=== PATIENT | female | born 1965 | race Caucasian/White ===

== ENCOUNTER 2017-03-30 11:02 | Emergency (ER) | payer OTHER ==
[~2017-03-30] VITALS: Ht 142.2 cm; Wt 73.3 kg
[~2017-03-30 11:02] MED LIST: AMLO-73 PO; ASPI81CT89 PO; SIMV20TA1 PO; [UNRECOGNIZED DRUG - CODE] PO
[2017-03-30 11:23] VITALS: BP 129/80
--- NOTE | 2017-03-30 13:13 | NUR ---
Patient ambulated to bed 5 at this time.
--- NOTE | 2017-03-30 13:15 | NUR ---
51F BIB FAMILY C/O GENERALIZED WEAKNESS X 3 DAYS; PT AA&OX4, PERRLA, BL LUNG SOUNDS CLEAR, RR EVEN/UNLABORED AT THIS TIME; SKIN IS WARM/DRY/INTACT AT THIS TIME; PT C/O OF NAUSEA, BUT DENIES VOMITING/DIARRHEA AT THIS TIME; ABDOMEN SOFT, NON-TENDER, ACTIVE BOWEL SOUNDS X4 QUADRANTS; PT STATES NO PAIN AT THIS TIME; PT STATES HAD 2 EPISODES OF VAGINAL SPOTTING X 2 DAYS AGO, BUT STATES NO VAGINAL SPOTTING, DYSURIA, OR URINARY SYMPTOMS AT THIS TIME; PT RESTING IN BED W/ HOB ELEVATED AND IN LOWEST POSITION; POSITIONED FOR COMFORT; ER MD MADE AWARE OF STATUS. WILL CONTINUE TO MONITOR.
--- NOTE | 2017-03-30 13:43 | NUR ---
PT TAKEN TO XRAY VIA W/C ACCOMPANIED BY Box AT THIS TIME.
[2017-03-30 13:53] LABS: APPEARANCE,URINE CLEAR (CLEAR); BILIRUBIN,URINE NEGATIVE (NEGATIVE); BLOOD, URINE TRACE-I (NEGATIVE); COLOR,URINE YELLOW (YELLOW); LEUKOCYTE ESTERASE ,URINE NEGATIVE (NEGATIVE); NITRITE, URINE NEGATIVE (NEGATIVE); PROTEIN,URINE NEGATIVE (NEGATIVE); UGLUCOSE NEGATIVE (NEGATIVE); UROBILINOGEN,URINE 0.2 EU/dL (0.2 - 1)
[2017-03-30 14:09] LABS: ALBUMIN 3.6 g/dL (3.4-5.0); ANION GAP 12.5 (8-16); CALCIUM 8.6 mg/dL (8.5-10.1); CARBON DIOXIDE 26.8 mmol/L (21-32); CREATININE 0.5 mg/dL (0.6-1.3); POTASSIUM 4.3 mmol/L (3.5-5.1); TOTAL BILIRUBIN 0.2 mg/dL (0.0-1.0); TOTAL PROTEIN, SERUM 7.9 g/dL (6.4-8.2)
[2017-03-30 14:10] LABS: BASOPHILS # (AUTO) 0.2 K/uL (0.00-0.22); EOSINOPHILS # (AUTO) 0.1 K/uL (0-0.4); LYMPHOCYTES % (AUTO) 35.8 % (20.5-51.1); MONOCYTES # (AUTO) 0.5 K/uL (0.8-1.0); NEUTROPHILS # (AUTO) 2.3 K/uL (1.8-7.7)
[2017-03-30 14:11] LABS: HEMATOCRIT 44.3 % (36-48); HEMOGLOBIN 13.9 g/dL (12.0-16.0); RED BLOOD CELL COUNT(AUTO) 5.48 MIL/uL (4.20-5.40); WHITE BLOOD COUNT (AUTO) 4.9 K/uL (4.8-10.8)
[2017-03-30 14:12] LABS: BASOPHILS % (AUTO) 3.1 % (0.0-2.0); EOSINOPHILS % (AUTO) 2.1 % (0.0-4.0); LYMPHOCYTES # (AUTO) 1.8 K/uL (2.5-16.5); MEAN CORPUSCULAR HEMOGLOBIN 25 pg (27-31); MEAN CORPUSCULAR HGB CONC 31 g/dL (33-37); MEAN CORPUSCULAR VOLUME 81 fL (80-94); MONOCYTES % (AUTO) 10.9 % (1.7-9.3); NEUTROPHILS % (AUTO) 48.1 % (42.2-75.2); PLATELET COUNT (AUTO) 267 K/uL (140-450)
[2017-03-30 14:14] LABS: BACTERIA,URINE FEW /HPF (None Seen); WBC,URINE 0-3 /HPF (0-5)
[2017-03-30 14:27] LABS: PROTHROMBIN TIME 10.5 secs (10.8-13.4)
--- NOTE | 2017-03-30 14:39 | NUR ---
PT APPEARS TO BE RESTING COMFORTABLY IN BED; VSS; RR EVEN/UNLABORED; WILL CONTINUE TO MONITOR.
--- NOTE | 2017-03-30 15:53 | NUR ---
ER MD DR. FUENTES EVALUATING PT AT BEDSIDE.
[2017-03-30] MEDS ORDERED: LEVOFLOXACIN 750 MG TAB PO ONE ×2 (16:05→16:30)
[2017-03-30] MEDS ORDERED: LEVOFLOXACIN 500 MG TAB PO ONE (16:35)
--- NOTE | 2017-03-30 16:38 | NUR ---
PT APPEARS TO BE RESTING COMFORTABLY IN BED; VSS; RR EVEN/UNLABORED; STATES NO PAIN AT THIS TIME; WILL CONTINUE TO MONITOR.
[2017-03-30 17:00] VITALS: BP 124/76
--- NOTE | 2017-03-30 17:00 | NUR ---
Patient discharged with v/s stable. Written and verbal after care instructions given and explained. Patient alert, oriented and verbalized understanding of instructions. Ambulatory with steady gait. All questions addressed prior to discharge. ID band removed. Patient advised to follow up with PMD. Rx of PYRIDIUM 200MG TAB & CIPRO 500MG TAB given. Patient educated on indication of medication including possible reaction and side effects. Opportunity to ask questions provided and answered.
== END 2017-03-30 17:00 | disposition home or self-care (01) ==
LOC: MED 11:02
DX: R53.83 Other fatigue (principal); R42 Dizziness and giddiness; R30.0 Dysuria; I10 Essential (primary) hypertension; Z79.899 Other long term (current) drug therapy; Z98.890 Other specified postprocedural states
CPT/HCPCS: 36415; 71020; 80053; 81001; 81025; 82948; 84443; 85025; 85610; 99285

== ENCOUNTER 2017-12-07 19:05 | Emergency (ER) | payer OTHER ==
[~2017-12-07] VITALS: Ht 144.8 cm; Wt 72.6 kg
[~2017-12-07 19:05] MED LIST changes: +PHEN-500 PO; -[UNRECOGNIZED DRUG - CODE] PO
[2017-12-07 19:11] VITALS: BP 137/78
--- NOTE | 2017-12-07 19:52 | NUR ---
PATIENT AMBULATED TO ER CHAIR B
--- NOTE | 2017-12-07 20:00 | NUR ---
52Y F BIB SELF C/O WANG X 1 DAY, PT STATES SHE WAS TAKING LOTREL 5/40MG AND ZESTORETIC 20/25MG BUT PT STATES BP IS STILL NOT BEING CONTROLLED. PT DENIES ANY N/V/D, SOB, CP AT THE MOMENT. PT AAOX4. PT AMBULATED TO OF CHAIR B WITH STEADY GAIT
--- NOTE | 2017-12-07 20:52 | NUR ---
Dr. Chinchilla evaluating patient.
[2017-12-07 21:20] VITALS: BP 133/71
--- NOTE | 2017-12-07 21:21 | NUR ---
Patient discharged with v/s stable. Written and verbal after care instructions given and explained. Patient alert, oriented and verbalized understanding of instructions. Ambulatory with steady gait. All questions addressed prior to discharge. ID band removed. Patient advised to follow up with PMD. Rx of AMLODIPINE 5MG-40MG given. Patient educated on indication of medication including possible reaction and side effects. Opportunity to ask questions provided and answered.
== END 2017-12-07 21:21 | disposition home or self-care (01) ==
LOC: MED 19:05
DX: Z76.0 Encounter for issue of repeat prescription (principal); I10 Essential (primary) hypertension; Z79.899 Other long term (current) drug therapy; Z79.82 Long term (current) use of aspirin
CPT/HCPCS: 99283

== ENCOUNTER 2018-12-02 19:28 | Emergency (ER) | payer OTHER ==
[~2018-12-02] VITALS: Ht 144.8 cm; Wt 76.7 kg
[~2018-12-02 19:28] MED LIST changes: -AMLO-73 PO; +AMLO1CAP13 PO; +ASPI-1821 PO; -ASPI81CT89 PO
[2018-12-02 19:57] VITALS: BP 153/66
--- NOTE | 2018-12-02 20:03 | NUR ---
PT TO LOBBY, IN NO ACUTE DISTRESS, VSS.
--- NOTE | 2018-12-02 20:19 | NUR ---
53/F PRESENTS TO ED, C/O NONPRODUCTIVE COUGH, BL EARAHCE, THROAT PAIN AND BODY ACHES, X1 WEEK WORSENING. PT DENIES FEVER, N/V. AOX4, GCS 15, RR EVEN AND UNLABORED. HX HTN, PRE-DM
--- NOTE | 2018-12-02 20:19 | NUR ---
PT TAKEN TO BED 7
[2018-12-02] MEDS ORDERED: KETOROLAC 30 MG/ML VIAL IM ONE (21:55)
[2018-12-02 22:40] VITALS: BP 148/64
--- NOTE | 2018-12-02 22:40 | NUR ---
Patient discharged with v/s stable. Written and verbal after care instructions given and explained. Patient alert, oriented and verbalized understanding of instructions. Ambulatory with steady gait. All questions addressed prior to discharge. ID band removed. Patient advised to follow up with PMD. Rx of ZITHROMAX, NAPROSYN, AND GUAIATUSSIN given. Patient educated on indication of medication including possible reaction and side effects. Opportunity to ask questions provided and answered.
== END 2018-12-02 22:40 | disposition home or self-care (01) ==
LOC: MED 19:28
DX: J18.9 Pneumonia, unspecified organism (principal); I10 Essential (primary) hypertension; Z90.49 Acquired absence of other specified parts of digestive tract; Z79.82 Long term (current) use of aspirin; Z79.899 Other long term (current) drug therapy
CPT/HCPCS: 71045; 87804; 96372; 99284; J1885; Q0092

== ENCOUNTER 2019-01-23 12:10 | Emergency (ER) | payer OTHER ==
[~2019-01-23] VITALS: Ht 139.7 cm; Wt 74.5 kg
[2019-01-23 12:47] VITALS: BP 136/75
[2019-01-23 13:43] LABS: BASOPHILS % (AUTO) 0.6 % (0.0-2.0); EOSINOPHILS # (AUTO) 0.1 K/uL (0-0.4); EOSINOPHILS % (AUTO) 1.4 % (0.0-4.0); HEMATOCRIT 39.5 % (36-48); HEMOGLOBIN 12.7 g/dL (12.0-16.0); LYMPHOCYTES # (AUTO) 1.6 K/uL (2.5-16.5); LYMPHOCYTES % (AUTO) 29.8 % (20.5-51.1); MEAN CORPUSCULAR HEMOGLOBIN 26 pg (27-31); MEAN CORPUSCULAR HGB CONC 32 g/dL (33-37); MEAN CORPUSCULAR VOLUME 81.3 fL (80-94); MONOCYTES # (AUTO) 0.5 K/uL (0.8-1.0); MONOCYTES % (AUTO) 10.1 % (1.7-9.3); NEUTROPHILS # (AUTO) 3.1 K/uL (1.8-7.7); NEUTROPHILS % (AUTO) 58.1 % (42.2-75.2); PLATELET COUNT (AUTO) 245 K/uL (140-450); RED BLOOD CELL COUNT(AUTO) 4.85 MIL/uL (4.20-5.40); RED CELL DISTRIBUTION WIDTH 15.1 % (11.6-13.7); WHITE BLOOD COUNT (AUTO) 5.4 K/uL (4.8-10.8)
[2019-01-23 13:47] LABS: BILIRUBIN,URINE NEGATIVE (NEGATIVE); COLOR,URINE YELLOW (YELLOW); LEUKOCYTE ESTERASE ,URINE NEGATIVE (NEGATIVE); NITRITE, URINE NEGATIVE (NEGATIVE); UGLUCOSE NEGATIVE (NEGATIVE)
[2019-01-23 13:53] LABS: ANION GAP 10.9 (8-16); CARBON DIOXIDE 27.9 mmol/L (21-32); CREATININE 0.6 mg/dL (0.6-1.3); POTASSIUM 3.8 mmol/L (3.5-5.1)
[2019-01-23 13:57] LABS: APPEARANCE,URINE CLEAR (CLEAR); BLOOD, URINE 1+ (NEGATIVE); RBC,URINE 0-5 /HPF (0-5); WBC,URINE 0-5 /HPF (0-5)
--- NOTE | 2019-01-23 14:04 | NUR ---
Patient ambulated to bed 4. RN evaluating patient at bedside.
--- NOTE | 2019-01-23 14:04 | NUR ---
BIB SELF. AAO X4 C/O GENARALIZED WEAKNESS X 1 WEEK . PT DENIES DIZZINESS, N/V. DENIES SOB. PERRLA BRISK 3MM. FULL CLEAR SPEECH. EQUAL [place] STRENGTH TO UPPER AND LOWER EXTREMITIES. HOB UP. BED SIDE RAILS UP X1. ON LOW BED POSITION, LOCKED. ER MADE AWARE OF PT STATUS.
--- NOTE | 2019-01-23 14:13 | NUR ---
RESIDENT DOCTOR AT BEDSIDE FOR PT EVALUATION
[2019-01-23 15:00] VITALS: BP 135/76
--- NOTE | 2019-01-23 15:00 | NUR ---
Patient discharged with v/s stable. Written and verbal after care instructions given and explained. Patient verbalized understanding. Ambulatory with steady gait. All questions addressed prior to discharge. Advised to follow up with PMD.
== END 2019-01-23 15:00 | disposition home or self-care (01) ==
LOC: MED 12:10
DX: R53.83 Other fatigue (principal); I10 Essential (primary) hypertension; Z79.82 Long term (current) use of aspirin; Z79.899 Other long term (current) drug therapy
CPT/HCPCS: 36415; 80048; 81001; 85025; 99283

== ENCOUNTER 2019-02-27 20:36 | Emergency (ER) | payer OTHER ==
[~2019-02-27] VITALS: Ht 149.9 cm; Wt 71.7 kg
[2019-02-27 20:50] VITALS: BP 142/80
[2019-02-27] MEDS ORDERED: ONDANSETRON 4 MG/2 ML VIAL IVP ONE (20:55)
--- NOTE | 2019-02-27 20:55 | NUR ---
PT AMBULATED TO BED 10. PROVIDED WITH URINE CUP.
--- NOTE | 2019-02-27 20:58 | NUR ---
PATIENT TAKEN TO CT IN WHEELCHAIR.
--- NOTE | 2019-02-27 21:34 | NUR ---
C/O ABD DISTENTION, NAUSEA, AND DIZZINESS X2 WEEKS. NAUSEA WITHOUT VOMITING. NO C/O PAIN. VSS. DENIES OTHER SYMPTOMS AT THIS TIME. NO TENDERNESS, ABD SOFT.
[2019-02-27 21:35] LABS: BASOPHILS % (AUTO) 0.4 % (0.0-2.0); EOSINOPHILS # (AUTO) 0.1 K/uL (0-0.4); HEMATOCRIT 39.2 % (36-48); HEMOGLOBIN 12.5 g/dL (12.0-16.0); LYMPHOCYTES # (AUTO) 2.7 K/uL (2.5-16.5); LYMPHOCYTES % (AUTO) 34.6 % (20.5-51.1); MEAN CORPUSCULAR HEMOGLOBIN 26 pg (27-31); MEAN CORPUSCULAR HGB CONC 32 g/dL (33-37); MONOCYTES # (AUTO) 0.9 K/uL (0.8-1.0); MONOCYTES % (AUTO) 11.9 % (1.7-9.3); NEUTROPHILS # (AUTO) 4.1 K/uL (1.8-7.7); NEUTROPHILS % (AUTO) 52.1 % (42.2-75.2); PLATELET COUNT (AUTO) 248 K/uL (140-450); RED BLOOD CELL COUNT(AUTO) 4.84 MIL/uL (4.20-5.40); RED CELL DISTRIBUTION WIDTH 13.7 % (11.6-13.7); WHITE BLOOD COUNT (AUTO) 7.8 K/uL (4.8-10.8)
[2019-02-27] MEDS ORDERED: MECLIZINE 25 MG TAB PO ONE (21:35)
[2019-02-27] MEDS ORDERED: NACL 0.9% 500 ML IV ONE (21:35)
[2019-02-27 21:47] LABS: ANION GAP 12.8 (8-16); CARBON DIOXIDE 25.9 mmol/L (21-32); CREATININE 0.6 mg/dL (0.6-1.3); POTASSIUM 3.7 mmol/L (3.5-5.1)
[2019-02-27 21:54] LABS: ALBUMIN 3.3 g/dL (3.4-5.0); TOTAL BILIRUBIN 0.1 mg/dL (0.0-1.0)
[2019-02-27 22:15] VITALS: BP 142/80
--- NOTE | 2019-02-27 22:15 | NUR ---
Patient discharged with v/s stable. Written and verbal after care instructions given and explained. Patient alert, oriented and verbalized understanding of instructions. Ambulatory with steady gait. All questions addressed prior to discharge. ID band removed. Patient advised to follow up with PMD. Rx of MIRALAX, LACTULOSE, AND MECLIZINE given. Patient educated on indication of medication including possible reaction and side effects. Opportunity to ask questions provided and answered.
== END 2019-02-27 22:15 | disposition home or self-care (01) ==
LOC: MED 20:36
DX: R42 Dizziness and giddiness (principal); K59.00 Constipation, unspecified; I10 Essential (primary) hypertension; Z79.82 Long term (current) use of aspirin; Z79.899 Other long term (current) drug therapy
CPT/HCPCS: 36415; 70450; 74018; 80053; 81002; 81025; 85025; 96361; 96374; 99284; J2405; J7030; J8597; Q0092

== ENCOUNTER 2019-06-30 12:57 | Emergency (ER) | payer OTHER ==
[~2019-06-30] VITALS: Ht 142.2 cm; Wt 70.8 kg
[2019-06-30 13:05] VITALS: BP 117/64
[2019-06-30] MEDS ORDERED: KETOROLAC 60 MG/2 ML VIAL IM ONE (13:45)
[2019-06-30 14:35] VITALS: BP 119/71
== END 2019-06-30 14:35 | disposition home or self-care (01) ==
LOC: MED 12:57
DX: S70.02XA Contusion of left hip, initial encounter (principal); M79.662 Pain in left lower leg; M79.602 Pain in left arm; I10 Essential (primary) hypertension; E11.9 Type 2 diabetes mellitus without complications; Z79.82 Long term (current) use of aspirin; Z79.899 Other long term (current) drug therapy; W18.39XA Other fall on same level, initial encounter; Y93.89 Activity, other specified; Y92.512 Supermarket, store or market as the place of occurrence of the external cause; Y99.8 Other external cause status
CPT/HCPCS: 73502; 81025; 96372; 99283; J1885

== ENCOUNTER 2019-10-25 18:01 | Emergency (ER) | payer OTHER ==
[~2019-10-25] VITALS: Ht 142.2 cm; Wt 71.2 kg
[2019-10-25 18:10] VITALS: BP 151/90
--- NOTE | 2019-10-25 18:22 | NUR ---
54 Y/O F C/O WANG 8/10 AND UPPER ABDOMINAL PAIN X 1 DAY. PT DENIES N/V/D. PT STATES THE UPPER PART OF HER HEAD HURTS. PT PUPILS PERRLA, ABDOMEN IS NON TENDER TO TOUCH, BOWEL SOUNDS ACTIVE ALL FOUR QUADRANTS. PT DID NOT TAKE ANYTHING AT HOME FOR PAIN. PT POSITIONED FOR COMFORT IN THE CHAIR. RASHID
--- NOTE | 2019-10-25 18:59 | NUR ---
PA AT BEDSIDE EXAMINING PATIENT.
[2019-10-25] MEDS ORDERED: ALUMINUM HYD/MAG/SIMETHICONE 30 ML, DICYCLOMINE HCL LIQUID 20 MG, LIDOCAINE VISCOUS 2% ... PO ONE ×3 (19:00)
[2019-10-25] MEDS ORDERED: ALUMINUM HYD/MAG/SIMETHICONE 30 ML UDC ONE (19:07)
[2019-10-25] MEDS ORDERED: DICYCLOMINE HCL LIQUID 10 MG/5 ML UDC ONE (19:07)
[2019-10-25] MEDS ORDERED: LIDOCAINE VISCOUS 2% 20 ML UDC ONE (19:07)
--- NOTE | 2019-10-25 19:13 | NUR ---
RECEIVED REPORT FORM LA SHAFFER. WILL CONT CARE AT THIS TIME.
--- NOTE | 2019-10-25 19:13 | NUR ---
REPORT GIVEN TO LA SAWYER FOR CHANGE OF SHIFT.
[2019-10-25 19:43] VITALS: BP 150/87
--- NOTE | 2019-10-25 19:43 | NUR ---
Patient discharged with v/s stable. Written and verbal after care instructions given and explained. Patient alert, oriented and verbalized understanding of instructions. Ambulatory with steady gait. All questions addressed prior to discharge. ID band removed. Patient advised to follow up with PMD. Rx of TYLENOL EXTRA STRENGTH, PEPCID given. Patient educated on indication of medication including possible reaction and side effects. Opportunity to ask questions provided and answered.
== END 2019-10-25 19:43 | disposition home or self-care (01) ==
LOC: MED 18:01
DX: R10.13 Epigastric pain (principal); I10 Essential (primary) hypertension; Z79.82 Long term (current) use of aspirin; Z79.899 Other long term (current) drug therapy
CPT/HCPCS: 82948; 99283

== ENCOUNTER 2021-01-04 15:33 | Emergency (ER) | payer OTHER ==
[~2021-01-04] VITALS: Ht 137.2 cm; Wt 71.2 kg
[2021-01-04 15:54] VITALS: BP 116/81
[2021-01-04] MEDS ORDERED: DICYCLOMINE HCL LIQUID 20 MG, ALUMINUM HYD/MAG/SIMETHICONE 30 ML, LIDOCAINE VISCOUS 2% ... PO ONE ×3 (16:15)
[2021-01-04] MEDS ORDERED: ONDANSETRON 4 MG ODT PO ONE (16:15)
[2021-01-04] MEDS ORDERED: OMEP40EC24 PO (16:23)
[2021-01-04] MEDS ORDERED: ONDA8TAB87 PO (16:23)
[2021-01-04] MEDS ORDERED: LIDOCAINE VISCOUS 2% 20 ML UDC ONE (16:27)
[2021-01-04] MEDS ORDERED: DICYCLOMINE HCL LIQUID 10 MG/5 ML UDC ONE (16:27)
[2021-01-04] MEDS ORDERED: ALUMINUM HYD/MAG/SIMETHICONE 30 ML UDC ONE (16:27)
--- NOTE | 2021-01-04 16:44 | NUR ---
55 Y/O F PATIENT PRESENTS TO ED WITH ABD PAIN THAT STARTED 01/04/21, N&V. DENIES CONSTIPATION AND DIARRHEA; SKIN IS PINK/WARM/DRY; AAOX4 WITH EVEN AND STEADY GAIT; LUNGS CLEAR BL; HR EVEN AND REGULAR; PT DENIES ANY FEVER, CP, SOB, OR COUGH AT THIS TIME; PATIENT STATES PAIN OF 5/10 AT THIS TIME; VSS; PATIENT POSITIONED FOR COMFORT; HOB ELEVATED; BEDRAILS UP X2; BED DOWN. ER MD MADE AWARE OF PT STATUS. PMH: GASTRITIS, HTN NKA MED: NONE
--- NOTE | 2021-01-04 16:53 | NUR ---
Patient discharged with v/s stable. Written and verbal after care instructions given and explained. Patient alert, oriented and verbalized understanding of instructions. Ambulatory with steady gait. All questions addressed prior to discharge. ID band removed. Patient advised to follow up with PMD. Rx of OMEPRAZOLE,ONDANSETRON given. Patient educated on indication of medication including possible reaction and side effects. Opportunity to ask questions provided and answered.
[2021-01-04 16:54] VITALS: BP 116/81
== END 2021-01-04 16:53 | disposition home or self-care (01) ==
LOC: MED 15:33
DX: R10.13 Epigastric pain (principal); R11.2 Nausea with vomiting, unspecified; E11.9 Type 2 diabetes mellitus without complications; I10 Essential (primary) hypertension; Z79.899 Other long term (current) drug therapy
CPT/HCPCS: 99283; Q0162

== ENCOUNTER 2022-08-24 13:09 | Emergency (ER) | payer OTHER ==
[~2022-08-24] VITALS: Ht 144.8 cm; Wt 74.8 kg
[~2022-08-24 13:09] MED LIST changes: +AMLO-515 PO; -AMLO1CAP13 PO; +OMEP40EC24 PO; +ONDA8TAB87 PO; +SIMV-372 PO; -SIMV20TA1 PO
[2022-08-24 14:27] VITALS: BP 143/96
[2022-08-24] MEDS ORDERED: ACETAMINOPHEN EXTRA STRENGTH 500 MG TAB PO ONE (17:20)
--- NOTE | 2022-08-24 17:37 | NUR ---
PATIENT TAKEN TO X RAY VIA W/C
--- NOTE | 2022-08-24 17:39 | NUR ---
56/F PRESENTS TO ED WITH C/O GENERALIZED BODY PAIN S/P TC, DENIES TAKING MEDS FOR PAIN. DENIES LOC, N/V, CP OR SOB.
[2022-08-24] MEDS ORDERED: IBUPROFEN 600 MG TAB PO ONE (19:20)
[2022-08-24] MEDS ORDERED: CYCL-711 PO (21:03)
[2022-08-24] MEDS ORDERED: NAPR-1847 PO (21:03)
[2022-08-24] MEDS ORDERED: IBUPROFEN 600 MG TAB ONE (21:22)
[2022-08-24 21:43] VITALS: BP 129/82
--- NOTE | 2022-08-24 21:43 | NUR ---
Patient discharged with v/s stable. Written and verbal after care instructions given and explained. Patient alert, oriented and verbalized understanding of instructions. Ambulatory with steady gait. All questions addressed prior to discharge. ID band removed. Patient advised to follow up with PMD. Rx of Flexeril and Naproxen given. Patient educated on indication of medication including possible reaction and side effects. Opportunity to ask questions provided and answered.
== END 2022-08-24 21:43 | disposition home or self-care (01) ==
LOC: MED 13:09
DX: S83.91XA Sprain of unspecified site of right knee, initial encounter (principal); S16.1XXA Strain of muscle, fascia and tendon at neck level, initial encounter; M54.9 Dorsalgia, unspecified; I10 Essential (primary) hypertension; Z79.899 Other long term (current) drug therapy; Z79.82 Long term (current) use of aspirin; V49.9XXA Car occupant (driver) (passenger) injured in unspecified traffic accident, initial encounter; Y93.89 Activity, other specified; Y92.89 Other specified places as the place of occurrence of the external cause; Y99.8 Other external cause status
CPT/HCPCS: 72050; 72080; 73562; 73700; 99284

== ENCOUNTER 2023-01-08 16:38 | Emergency (ER) | payer OTHER ==
[~2023-01-08] VITALS: Ht 134.6 cm; Wt 75.3 kg
[~2023-01-08 16:38] MED LIST changes: +CYCL-711 PO; +NAPR-1847 PO
[2023-01-08 16:51] VITALS: BP 122/77
--- NOTE | 2023-01-08 17:21 | NUR ---
Dr. Lobato evaluating patient at bedside.
--- NOTE | 2023-01-08 17:35 | NUR ---
Patient discharged with v/s stable. Written and verbal after care instructions given. Patient verbalized understanding. Ambulatory with steady gait. All questions addressed prior to discharge. Advised to follow up with PMD.
--- NOTE | 2023-01-08 17:36 | NUR ---
The patient's care was reviewed and supervised by Nicole Dodge, RN, RN.
== END 2023-01-08 17:46 | disposition home or self-care (01) ==
LOC: MED 16:38
DX: R49.0 Dysphonia (principal); E11.9 Type 2 diabetes mellitus without complications; E03.9 Hypothyroidism, unspecified; I10 Essential (primary) hypertension; Z79.899 Other long term (current) drug therapy; Z79.82 Long term (current) use of aspirin; Z79.1 Long term (current) use of non-steroidal anti-inflammatories (NSAID)
CPT/HCPCS: 99281

== ENCOUNTER 2023-08-20 13:02 | Emergency (ER) | payer OTHER ==
[~2023-08-20] VITALS: Ht 157.5 cm; Wt 77.1 kg
[2023-08-20 13:24] VITALS: BP 116/69; PULSE 84; RESP 16; TEMP 98; O2SAT 99
[2023-08-20] MEDS ORDERED: KETOROLAC 30 MG/ML VIAL IM ONE (14:05)
[2023-08-20 14:11] LABS: APPEARANCE,URINE CLEAR (CLEAR); BILIRUBIN,URINE NEGATIVE (NEGATIVE); BLOOD, URINE 1+ (NEGATIVE); COLOR,URINE YELLOW (YELLOW); LEUKOCYTE ESTERASE ,URINE NEGATIVE (NEGATIVE); NITRITE, URINE NEGATIVE (NEGATIVE); PROTEIN,URINE NEGATIVE (NEGATIVE); UGLUCOSE NEGATIVE (NEGATIVE); UROBILINOGEN,URINE 0.2 EU/dL (0.2 - 1)
[2023-08-20 14:23] LABS: BACTERIA,URINE 1+ /HPF (None Seen); MUCUS,URINE 1+ /LPF (None Seen); SQUAMOUS EPITHELIAL CELL,UR 4-10 (MOD) /LPF (0-3 (FEW)); TRICHOMONAS,URINE None Seen /HPF (None Seen); WBC,URINE 0-5 /HPF (0-5); YEAST,URINE Few /HPF (None Seen)
[2023-08-20] MEDS ORDERED: ACET-8905 PO (15:23)
[2023-08-20] MEDS ORDERED: IBUP-2213 PO (15:23)
[2023-08-20] MEDS ORDERED: LID5T TP (15:23)
[2023-08-20 15:33] VITALS: BP 121/69; PULSE 84; RESP 16; TEMP 98; O2SAT 99
== END 2023-08-20 15:53 | disposition home or self-care (01) ==
LOC: MED 13:02
DX: S39.012A Strain of muscle, fascia and tendon of lower back, initial encounter (principal); R31.9 Hematuria, unspecified; E11.9 Type 2 diabetes mellitus without complications; I10 Essential (primary) hypertension; F03.90 Unspecified dementia, unspecified severity, without behavioral disturbance, psychotic disturbance, mood disturbance, and anxiety; Z86.39 Personal history of other endocrine, nutritional and metabolic disease; Z79.899 Other long term (current) drug therapy; Z79.1 Long term (current) use of non-steroidal anti-inflammatories (NSAID); Z79.82 Long term (current) use of aspirin; X58.XXXA Exposure to other specified factors, initial encounter; Y92.89 Other specified places as the place of occurrence of the external cause; Y93.89 Activity, other specified; Y99.8 Other external cause status
CPT/HCPCS: 72100; 81001; 87086; 96374; 99284; J1885

== ENCOUNTER 2024-03-11 10:25 | Emergency (ER) | payer OTHER ==
[~2024-03-11] VITALS: Ht 134.6 cm; Wt 76.4 kg
[~2024-03-11 10:25] MED LIST changes: +ACET-8905 PO; +IBUP-2213 PO; +LID5T TP
[2024-03-11 10:32] VITALS: BP 138/88; PULSE 96; RESP 16; TEMP 97.6; O2SAT 95
[2024-03-11] MEDS: EPINEPHrine 1 MG/ML AMP IM ONE (11:07)
[2024-03-11] MEDS: diphenhydrAMINE 50 MG CAP PO ONE (11:13)
[2024-03-11] MEDS: KETOROLAC 30 MG/ML VIAL IM ONE (11:14)
[2024-03-11] MEDS ORDERED: EPIN1KIT31 IM (11:42)
[2024-03-11] MEDS ORDERED: PRED20TA5 PO (11:42)
[2024-03-11 12:08] VITALS: BP 130/79; PULSE 90; RESP 16; TEMP 97.6; O2SAT 96
== END 2024-03-11 12:08 | disposition home or self-care (01) ==
LOC: MED 10:25
DX: T63.441A Toxic effect of venom of bees, accidental (unintentional), initial encounter (principal); R05.9 Cough, unspecified; R06.2 Wheezing; I10 Essential (primary) hypertension; F41.9 Anxiety disorder, unspecified; Z86.39 Personal history of other endocrine, nutritional and metabolic disease; Z79.1 Long term (current) use of non-steroidal anti-inflammatories (NSAID); Z79.2 Long term (current) use of antibiotics; Z79.82 Long term (current) use of aspirin; Z79.899 Other long term (current) drug therapy; Y92.89 Other specified places as the place of occurrence of the external cause
CPT/HCPCS: 71045; 96372; 99284; J0171; J1885; Q0163